=== PATIENT | female | born 1980 | race Two or more races ===

== ENCOUNTER 2021-09-30 12:18 | Inpatient (IN) | payer OTHER ==
[~2021-09-30] VITALS: Ht 157.5 cm; Wt 3.6 kg
[2021-09-30] MEDS ORDERED: FE C PLUS TABL1 EACH PO (12:53)
[2021-09-30] MEDS ORDERED: FERROUS SULFAT325 MG (13:35)
== END 2021-10-03 16:15 | disposition home or self-care (01) | DRG 785 ==
LOC: LDR 12:18 → OB/GYN 20:01 → O/R 20:02 → OB/GYN 20:48
PROVIDERS: ADMIT Obstetrics & Gynecology Obstetrics; ATTEND Obstetrics & Gynecology Obstetrics
PROC: 0UB70ZZ Excision of Bilateral Fallopian Tubes, Open Approach (ICD-10-PCS; 2021-09-30)
PROC: 4A1HXCZ Monitoring of Products of Conception, Cardiac Rate, External Approach (ICD-10-PCS; 2021-09-30)
PROC: 10D00Z1 Extraction of Products of Conception, Low, Open Approach (ICD-10-PCS; principal; 2021-09-30 20:45)
DX: O36.60X0 Maternal care for excessive fetal growth, unspecified trimester, not applicable or unspecified (principal); O34.211 Maternal care for low transverse scar from previous cesarean delivery; Z3A.39 39 weeks gestation of pregnancy; Z37.0 Single live birth; Z20.822 Contact with and (suspected) exposure to COVID-19; Z30.2 Encounter for sterilization